=== PATIENT | female | born 1975 | race American Indian/Alaskan Native ===

== ENCOUNTER 2016-11-21 10:46 | Inpatient (IN) | payer MEDICARE ==
[2016-11-20 11:05] LABS: Basophils % (Auto) 0.3 % (0.0-1.8); Eosinophils % (Auto) 1.4 % (0.0-4.3); Hematocrit 37.4 % (30.3-42.9); Hemoglobin 11.9 gm/dl (10.1-14.3); Mean Corpuscular HGB Conc 32 % (30-34); Mean Corpuscular Hemoglobin 31 pg (28-32); Mean Corpuscular Volume 97 fl (79-97); Platelet Count 142 K/mm3 (140-440); Red Blood Count 3.85 M/mm3 (3.65-5.03); Red Cell Distribution Width 12.8 % (13.2-15.2); White Blood Count 3.9 K/mm3 (4.5-11.0)
--- NOTE | 2016-11-20 11:26 | Anesthesia Consultation ---
Anesthesia Consult and Med Hx Date of service: 11/20/16 - Airway Anesthetic Teeth Evaluation: Good ROM Head & Neck: Adequate Mental/Hyoid Distance: Adequate Mallampati Class: Class III Intubation Access Assessment: Probably Good - Pulmonary Exam CTA: Yes - Cardiac Exam Cardiac Exam: RRR - Pre-Operative Health Status ASA Pre-Surgery Classification: ASA2 Proposed Anesthetic Plan: General - Pre-Anesthesia Comment Pre-Anesthesia Comments: Cervical surgery, does not limit ROM - Pulmonary Hx Smoking: Yes (2 cigaretes per day [id number]) Hx Asthma: Yes (last inhaler mos ago) Hx Sleep Apnea: No - Cardiovascular System Hx Hypertension: No Hx Heart Attack/AMI: No - Central Nervous System Hx Seizures: No CVA: No Hx Psychiatric Problems: Yes (bipolar, anxiety, on propanolol) - Gastrointestinal Hx Ulcer: No Hx Gastroesophageal Reflux Disease: No - Endocrine Hx Renal Disease: No Hx Liver Disease: No Hx Non-Insulin Dependent Diabetes: No Hx Hypothyroidism: Yes (FOR 3 YRS, DR took off meds) - Hematic Hx Anemia: Yes Hx Sickle Cell Disease: No - Other Systems Hx Alcohol Use: Yes (occas) Hx Cancer: No Hx Obesity: Yes - Additional Comments Anesthesia Medical History Comments: NAC
[~2016-11-21 10:46] MED LIST: PEPCID PO NR; VERSED IV NR
[2016-11-21] MEDS ORDERED: LACTATED RINGERS 1,000 ML IV SCH (12:00)
[2016-11-21] MEDS ORDERED: MARCAINE-EPI 0.5%-1:200,000 INFILTRATI ONE ×2 (12:12→12:29)
[2016-11-21] MEDS ORDERED: DECADRON ONE ×2 (12:13→12:28)
[2016-11-21] MEDS ORDERED: XYLOCAINE 1% 20 mL ONE (12:13)
[2016-11-21] MEDS ORDERED: SUBLIMAZE ONE (12:14)
[2016-11-21] MEDS ORDERED: NEURONTIN ONE (12:16)
[2016-11-21] MEDS ORDERED: MARCAINE-EPI/PF 0.5%-1:200,000 INFILTRATI ONE (12:28)
[2016-11-21] MEDS ORDERED: DILAUDID ONE (13:00)
[2016-11-21] MEDS ORDERED: DIPRIVAN 10 MG/ML IV ONE (13:00)
[2016-11-21] MEDS ORDERED: CLONIDINE 1,000 MCG/10 ML VIAL EP ONE (13:00)
[2016-11-21] MEDS ORDERED: ANCEF/STERILE WATER 2 GM/20 ML IV NR (13:06)
[2016-11-21] MEDS ORDERED: SUBLIMAZE IV NR (13:06)
[2016-11-21] MEDS ORDERED: NEURONTIN PO NR (13:10)
[2016-11-21] MEDS ORDERED: NEOSPORIN GU IR ONE (13:38)
[2016-11-21] MEDS ORDERED: WATER FOR IRRIG STERILE IR ONE (13:38)
[2016-11-21] MEDS ORDERED: NACL 0.9% IR ONE ×2 (13:38)
[2016-11-21] MEDS ORDERED: ZEMURON IV ONE (14:09)
[2016-11-21] MEDS ORDERED: ROBINUL ONE (14:09)
[2016-11-21] MEDS ORDERED: ZOFRAN ONE (14:09)
[2016-11-21] MEDS ORDERED: TORADOL ONE (14:09)
[2016-11-21] MEDS ORDERED: XYLOCAINE MPF 2% ONE (14:09)
[2016-11-21] MEDS ORDERED: BLOXIVERZ ONE (14:09)
[2016-11-21] MEDS ORDERED: LACTATED RINGERS 1,000 ML ONE (14:25)
[2016-11-21] MEDS ORDERED: NARCAN 0.4 MG/1 ML IV PRN (15:14)
--- NOTE | 2016-11-21 15:14 | Operative Report ---
Operative Report Operative Report: Date of surgery: 11/21/2016 Preoperative diagnoses: Uterine fibroids; dysfunctional uterine bleeding Postoperative diagnoses: Same as above Procedure: Robotic hysterectomy; bilateral salpingectomy Surgeon: Sandra Massey M.D. Fur Pointer: Edison Keyes Anesthesia: Gen. endotracheal anesthesia Estimated blood loss: 50 mL Pathology: Uterus, cervix, bilateral tubes Indication: 41-year-old 1-4 with a history of symptomatic uterine fibroids and dysfunctional uterine bleeding. The patient did not receive adequate improvement of her symptoms with medical management and elected to undergo definitive surgical management. Procedure: The patient was taken to the operating room and given general endotracheal anesthesia without complication. She is prepped and draped in a normal sterile fashion. A bivalve speculum was placed in the patient's vagina and a single- tooth tenaculum placed on the anterior lip of the cervix. The uterus was sounded with the uterine sound. A [employer] uterine manipulator was placed in the bivalve speculum was then removed. Attention was then turned to the patient's abdomen where a millimeter supra umbilical skin incision was then made. A Veress needle was placed and peritoneal entry was verified water-filled syringe. Insufflation of the peritoneal cavity was performed with CO2 gas. The 12 mm trocar was then placed under direct visualization. An additional 8 mm trocar was placed on the patient's left and right lateral side just opposite of the supraumbilical trocar. An additional 5 mm right lateral trocar was then placed as the accessory port. The patient was then placed in steep Trendelenburg. The da Ramo robot was then engaged. A fenestrated forcep was placed in arm 2 and a vessel sealer was placed in arm 1. The surgeon then transferred to the surgical console. General survey of the abdomen and pelvis reveal evidence of a slightly enlarged uterus consistent with a 9-10 week size uterus, normal tubes consistent with a prior tubal ligation via Filshie clips, and normal ovaries bilaterally. The left Filshie clip was detached from the fallopian tube was removed with a grasper. The mesosalpinx was then isolated on the right. The vessel sealer was used to coagulate the mesosalpinx which was then transected. The tube was transected from the ovary. The tubo-ovarian ligament was then coagulated and transected. The round ligament was then coagulated and transected also. The vesicouterine peritoneum was then entered from the patient's right side. The uterine vessels were then coagulated with the vessel sealer. The vessels were then transected . Attention was then turned to the patient's left side where the tubo-ovarian ligament and mesosalpinx were again isolated coagulated and transected. The vesical peritoneum was then entered from the left and joined in the midline. Peritoneum was reflected off of the lower uterine segment. Uterine vessels were then coagulated and then transected. The blood supply to the uterus was adequately contained, a posterior colpotomy was made. The V care ring was visualized. Posterior colpotomy was created with the monopolar scissors. The incision was continued circumferentially until anterior colpotomy was made. The cervix and uterus were amputated from the vaginal cuff. The uterus was then removed along with the tubes bilaterally through the vagina and a warm laparotomy sponge was placed and maintain the pneumoperitoneum. The vaginal cuff was then closed in a running fashion with V lock suture. Irrigation of the pelvis was performed. Tisseel was applied to the incision. The supraumbilical 12 mm trocar site was closed with the Tru Grossman device. The skin was then reapproximated with 4-0 Monocryl. The tissue was sent to pathology which included the cervix and uterus. The patient was then successfully extubated. She was then taken to the recovery room in stable condition. All sponge laps and needle counts were correct x2.
[2016-11-21] MEDS ORDERED: MOTRIN PO PRN (15:16)
[2016-11-21] MEDS ORDERED: PERCOCET 5/325 PO PRN (15:16)
[2016-11-21] MEDS ORDERED: TYLENOL PO PRN (15:16)
[2016-11-21] MEDS ORDERED: ZOFRAN IV PRN (15:16)
[2016-11-21] MEDS ORDERED: MORPHINE PCA 30MG/30ML IV SCH ×2 (16:00)
[2016-11-21] MEDS: D5LR 1,000 ML IV SCH (21:51)
[2016-11-21] MEDS: TORADOL IV SCH (22:40)
[2016-11-22] MEDS: TORADOL IV SCH ×2 (04:28→10:00)
[2016-11-22 06:41] LABS: Hematocrit 35.1 % (30.3-42.9); Hemoglobin 11.3 gm/dl (10.1-14.3)
[2016-11-22] MEDS: D5LR 1,000 ML IV SCH (06:44)
[2016-11-22 09:35] VITALS: BP 118/68
--- NOTE | 2016-11-22 09:42 | Discharge Summary ---
Providers - Providers Date of Admission: 11/21/16 15:16 Date of discharge: 11/22/16 Attending physician: FRANCO FRANKLIN Primary care physician: FERMENTING CELLAR DROPPER Hospitalization Reason for admission: other (DUB) Procedure: other (robotic hysterectomy and bilateral salpingectomy) Incision: normal Discharge diagnosis: other (DUB) Hospital course: She was admitted that he is surgery and underwent a robotic hysterectomy and bilateral salpingectomy. Please see operative note for details of surgery. Her postoperative course was uneventful. Condition at discharge: Good Disposition: DISCHARGED TO HOME OR SELFCARE - Discharge Diagnoses (1) Dysfunctional uterine bleeding Status: Acute Plan - Discharge Medications Prescriptions: Docusate Sodium [Colace] 100 mg PO BID PRN #60 capsule PRN Reason: Constipation Ibuprofen [Motrin] 800 mg PO Q8HR PRN #60 tablet PRN Reason: Pain Oxycodone HCl/Acetaminophen [Percocet 7.5/325 mg] 1 each PO Q6HR PRN #45 tablet PRN Reason: Pain - Provider Discharge Summary Activity: no sex for 6 weeks, no heavy lifting 4 weeks, no strenuous exercise Diet: routine Instructions: routine Additional instructions: [] Smoking cessation referral if applicable(refer to patient education folder for contact #) [] Refer to [facility]'s [facility] Booklet Call your doctor immediately for: * Fever > 100.5 * Heavy vaginal bleeding ( >1 pad per hour) * Severe persistent headache * Shortness of breath * Reddened, hot, painful area to leg or breast * Drainage or odor from incision. * Keep incision clean and dry at all times and follow doctor's instructions regarding bathing/showering Follow-up in 4 weeks - Follow up plan
--- NOTE | 2016-11-22 09:42 | Progress Note ---
Assessment and Plan - Patient Problems (1) Dysfunctional uterine bleeding Current Visit: Yes Status: Acute Plan to address problem: patient doing well discharge home Subjective - Subjective Date of service: 11/22/16 Principal diagnosis: DUB Interval history: Patient without complaints. Tolerating regular diet. Patient has voided since removal of her lund Patient reports: appetite normal, voiding normally, pain well controlled Objective - Vital Signs Latest vital signs: Vital Signs Temp Pulse Pulse Resp BP BP Pulse Ox 11/22/16 04:00 98.0 F 54 L 20 124/79 11/22/16 00:00 97.9 F 57 L 18 122/70 11/21/16 20:00 98.2 F 58 L 20 146/86 11/21/16 17:45 97.6 F 60 17 151/85 11/21/16 17:30 98 F 70 14 100 11/21/16 17:00 72 12 118/63 100 11/21/16 16:55 12 11/21/16 16:30 70 10 L 122/68 100 11/21/16 16:00 68 14 118/62 100 11/21/16 15:40 71 12 112/60 100 11/21/16 15:35 97.5 F L 75 12 115/63 100 11/21/16 12:44 55 L 12 153/81 100 11/21/16 12:39 54 L 12 137/78 100 11/21/16 12:34 62 12 143/88 100 11/21/16 12:29 55 L 14 155/87 100 11/21/16 12:24 57 L 13 148/83 100 11/21/16 11:06 98.2 F 63 16 141/75 99 11/21/16 11:00 98.2 F 63 16 141/75 99 Intake and Output 11/21/16 11/22/16 11/22/16 22:59 06:59 14:59 Intake Total 1480 Output Total 600 1000 Balance -600 480 Intake: IV 1000 D5lr 1,000 ml @ 125 mls/ 1000 hr IV DIRECT FLORENTIN Rx#: [id number] Oral 480 Output: Urine 600 1000 Indwelling Catheter 1000 Other: Total, Intake Amount 240 Total, Output Amount 600 Voiding Method Indwelling Catheter - Exam Abdomen: Present: normal appearance, soft
--- NOTE | 2016-11-22 12:40 | Progress Note ---
Subjective Date of service: 11/22/16 Principal diagnosis: DUB Interval history: 1st POD after hysterectomy Patient is relatively comfortable. Pain is mostly controlled with pain meds. Ambulated well. No nausea or vomiting. No anesthesia complications Objective - Constitutional Vitals: Vital Signs - 12hr 11/22/16 11/22/16 04:00 08:00 Temperature 98.0 F 98.4 F Pulse Rate [ 54 L 64 Left] Respiratory 20 16 Rate Blood Pressure 124/79 118/68 [Left Arm] - Labs CBC & Chem 7: 11/22/16 05:54
--- NOTE | 2016-11-22 14:27 | Admit Criteria Form ---
Admission Criteria Documentation: AMBULATORY SURGERY EXCEPTION CRITERIA Ambulatory Surgery Exception Criteria ( Place 'X' for any and all applicable criteria): Surgery or procedure performed on ambulatory basis may require inpatient stay for[A] ANY ONE of the following(1)(2)(3)(4)(5)(6)(7)(8)(9): [X] I. A preoperative situation, condition, or finding that warrants inpatient stay as indicated by ANY ONE of the following: [X] a) Inpatient care needed because of severity of a disease or condition rather than the surgery (eg, severe cardiac or respiratory disease, severe infection) (15) (16 ) (17) (18) [] b) Emergent procedure (eg, angioplasty for acute ischemia)(19) [] c) Complex surgical approach or situation as indicated by ANY ONE of the following(3): [] i) Open approach needed instead of usual endoscopic, transcatheter, or other less invasive procedure [] ii) Difficult approach because of previous operation [] iii) Airway monitoring required after open neck procedures(20)(21) [] iv) Large mass requiring unusually extensive dissection [] v) Additional complicating feature requiring inpatient care (eg, drain management)(22(23): [] d) Major surgery in a pt with high anesthetic risk as indicated by ANY ONE of the following (2)(3)(5)(7)(8): [] i) ASA risk class III or higher (severe systemic disease impairing function) [D] [] ii) Advanced age (eg, older than 85 years)(14)(24) [] iii) Symptomatic heart failure(25) [] iv) Symptomatic asthma or COPD(8)(21) [] v) Morbid obesity with hemodynamic or respiratory problems(20)( 21)(26)(27) [] vi) Obstructive sleep apnea(20)(21) [] vii) Former premature infants who are younger than 60 weeks [] viii) High risk for severe postoperative abnormalities (eg, severe postoperative hypocalcemia after parathyroidectomy for severe hyperparathyroidism)(27)( 28) [] ix) Unstable angina(25) [] e) Drug-related risk requiring inpatient stay as indicated by ANY ONE of the following(5)(10)(14)(32)(33) [] i) Procedure requires discontinuing drugs or other therapy (eg , antiarrhythmic medication, antiseizure medication), which necessitates inpatient observation or treatment.(18)(31) [] ii) Major surgery and high risk drug use as indicated by ANY ONE of the following: [] 1) Active abuse of cocaine or similar drug [] 2) Monoamine oxidase inhibitor use [] 3) Other drug identified as posing risk [] f) Inadequate outpatient care situation as indicated by ANY ONE of the following(5)(10)(14)(32)(33) [] i) Patient lives remote from medical facility and procedure has urgent complication potential, and temporary nearby residence cannot be arranged [] ii) Patient will have postprocedure incapacitation and inadequate assistance at home, or alternative level of care cannot be arranged. [] iii) Patient will have long general anesthesia or procedure side effect resolution time, and competent person to stay with patient on first postoperative night at home or alternative level of care cannot be arranged. []iv) Other inadequate outpatient situation that cannot be handled by other means [] II. A perioperative event, condition, or finding that warrants inpatient stay as indicated by ANY ONE of the following (1)(2)(3): [] a) Inadequate physiologic recovery: cardiovascular, respiratory, or hemodynamic status not normal or near preoperative baseline(18) [] b) Hemodynamic instability [] c) Patient not alert with near normal or baseline mental status [] d) Temperature not normal or as expected and not appropriate for outpatient treatment of condition [] e) Ambulatory or appropriate activity level status not yet achieved post procedure [E](34)(35)(36) [] f) Operative site not appropriate (eg, unexpected or excessive drainage or bleeding) [] g) Postoperative effects not resolved or adequately managed (eg, significant pain or vomiting not appropriate for outpatient or next level of care)(10)(12) [] h) Complicating features requiring inpatient care as indicated by ANY ONE of the following(37): [] i) Severe complications of procedure (eg, bowel injury, airway compromise, vascular injury,severe hemorrhage) [] ii) Extensive (eg, dissection far beyond usual scope of procedure ) or prolonged (eg, 120 minutes beyond usual) surgery needed requiring inpatient postoperative care [] iii) Conversion to an open or complex procedure that requires inpatient care (eg, open vs laparoscopic cholecystectomy, abdominal vs vaginal hysterectomy)(38) [] iv) Comorbid condition or test result identified during or post procedure that requires inpatient care (7) [] v) Malignant hyperthermia(30) [] vi) Other complicating feature requiring inpatient care(22)(23) Inpatient stay may be needed until ALL of the following are present (1)(2)(3)(4) (5)(6)(10)(14)(33)(40): []a) Physiologic recovery: cardiovascular, respiratory, and hemodynamic status normal or near preoperative baseline []b) Hemodynamic stability []c) Patient alert, with near normal or baseline mental status []d) Temperature appropriate: patient afebrile or temperature appropriate for outpt treatment of condition []e) Activity level appropriate: ambulatory or appropriate activity level post procedure []f) Operative site appropriate as indicated by ALL of the following: []i) Site dry or with expected drainage []ii) Any blood noted is as expected for procedure. []g) Postoperative effects resolved or managed as indicated by ALL of the following: []i) Pain management appropriate for outpatient (or next level of) care(10) []ii) Minimal nausea and vomiting: if present, successfully treated with oral medication(12) []iii) Headache, dizziness, or drowsiness (if present) are mild. []h) Voiding status acceptable as indicated by ANY ONE of the following: []i) Voiding spontaneously []ii) No voiding but instructions given for follow-up in 6 to 8 hours []iii) Urinary catheter in place, and instructions given for follow-up []i) Complicating features requiring inpatient care manageable at a lower level of care(37) []j) Comorbid conditions manageable at a lower level of care(37) The original [employer] content created by [employer] has been revised. The portions of the content which have been revised are identified through the use of italic text or in bold, and [employer] has neither reviewed nor approved the modified material. All other unmodified content is copyright [employer]. Please see references footnoted in the original [employer] edition 2016 Admission Criteria Met: Yes
== END 2016-11-22 10:45 | disposition home or self-care (01) | DRG 743 ==
LOC: OR 10:46 → OB 15:16 → OBSVTOIN 11-22 09:41
PROVIDERS: ADMIT Obstetrics & Gynecology; ATTEND Obstetrics & Gynecology
PROC: 0UT9FZZ Resection of Uterus, Via Natural or Artificial Opening With Percutaneous Endoscopic Assistance (ICD-10-PCS; principal; 2016-11-22)
PROC: 0UT7FZZ Resection of Bilateral Fallopian Tubes, Via Natural or Artificial Opening With Percutaneous Endoscopic Assistance (ICD-10-PCS; 2016-11-22)
PROC: 0UTC7ZZ Resection of Cervix, Via Natural or Artificial Opening (ICD-10-PCS; 2016-11-22)
PROC: 8E0W4CZ Robotic Assisted Procedure of Trunk Region, Percutaneous Endoscopic Approach (ICD-10-PCS; 2016-11-22)
DX: D25.9 Leiomyoma of uterus, unspecified (principal); N93.9 Abnormal uterine and vaginal bleeding, unspecified; F17.210 Nicotine dependence, cigarettes, uncomplicated; J45.909 Unspecified asthma, uncomplicated; F41.9 Anxiety disorder, unspecified; F31.9 Bipolar disorder, unspecified; D64.9 Anemia, unspecified; E66.9 Obesity, unspecified; Z68.33 Body mass index [BMI] 33.0-33.9, adult; Z88.2 Allergy status to sulfonamides; Z88.8 Allergy status to other drugs, medicaments and biological substances
CPT/HCPCS: 36415; 64450; 84703; 85014; 85018; 85025; 86850; 86900; 86901; 88305; 88307; A4217; C9250; G0378; J0690; J0735; J1100; J1170; J1885; J2250; J2270; J2405; J2704; J2710; J3010; J7120; J7121

== ENCOUNTER 2019-06-10 04:58 | Emergency (ER) | payer MEDICARE ==
[2019-06-10] MEDS ORDERED: TORADOL IM ONE (05:13)
[2019-06-10] MEDS ORDERED: PROVENTIL IH ONE (05:14)
[2019-06-10] MEDS ORDERED: DECADRON PO ONE (05:14)
--- NOTE | 2019-06-10 05:23 | Emergency Department Report ---
ED Asthma HPI - General Chief Complaint: Adult Asthma Stated Complaint: TARA Time Seen by Provider: 06/10/19 05:13 Source: patient Mode of arrival: Ambulatory Limitations: No Limitations - History of Present Illness Initial Comments: 43-year-old -Tongan female presents to the emergency room for nonproductive cough and shortness of breath 3 days. Patient reports that she is not getting much relief from her albuterol inhaler. Patient reports she's had 3 visits to the emergency room this year for her asthma. Patient does admit that she smokes cigarettes. She denies any fever or chills no chest pain. She also complains of back pain that she's had for months. Denies any recent traumas. Patient is asking for pain medication for her back. MD Complaint: shortness of breath Onset/Timin -: days(s) Asthma History: history of prior ED visit Associated Symptoms: dry cough. denies: fever, chest pain, hemoptysis, leg edema Treatments Prior to Arrival: inhaled bronchodilator - Related Data Current Asthma Therapy: inhaled bronchodilator Home Medications Medication Instructions Recorded Confirmed Last Taken FLUoxetine HCL [PROzac] 40 mg PO QDAY 10/02/13 11/19/16 11/20/16 clonazePAM [KlonoPIN] 5 mg PO BID 10/02/13 11/19/16 11/20/16 ALBUTEROL Inhaler (OR & NICU) 2 puff IH QID PRN 11/19/16 11/21/16 2 Months Ago [Proair] ~09/20/16 ARIPiprazole [Abilify] 10 mg PO DAILY 11/19/16 11/19/16 11/20/16 Benztropine [Cogentin] 0.5 mg PO HS 11/19/16 11/19/16 11/20/16 Propranolol HCl 20 mg PO BID 11/19/16 11/19/16 11/20/16 Previous Rx's Medication Instructions Recorded Last Taken Type Docusate Sodium [Colace] 100 mg PO BID PRN #60 capsule 11/22/16 Unknown Rx Ibuprofen [Motrin] 800 mg PO Q8HR PRN #60 tablet 11/22/16 Unknown Rx Oxycodone HCl/Acetaminophen 1 each PO Q6HR PRN #45 tablet 11/22/16 Unknown Rx [Percocet 7.5/325 mg] ALBUTEROL NEB's [Proventil 0.083% 2.5 mg IH TID PRN #1 box 06/10/19 Unknown Rx NEBS] Beclomethasone Dipropionate [Qvar 1 puff IH QDAY #1 hfa.aeroba 06/10/19 Unknown Rx Redihaler] predniSONE [Deltasone] 20 mg PO QDAY #4 tab 06/10/19 Unknown Rx Allergies Allergy/AdvReac Type Severity Reaction Status Date / Time Sulfa (Sulfonamide Allergy Intermediate Rash Verified 11/19/16 15:15 Antibiotics) fexofenadine HCl AdvReac Severe BLURRED Verified 11/19/16 15:15 [From Mayelin] VISION POWDER IN GLOVES Allergy Rash Uncoded 03/12/16 15:44 ED Review of Systems ROS: Stated complaint: TARA Other details as noted in HPI Comment: All other systems reviewed and negative ED Past Medical Hx - Past Medical History Previous Medical History?: Yes Hx Hypertension: No Hx Heart Attack/AMI: No Hx Liver Disease: No Hx Renal Disease: No Hx Sickle Cell Disease: No Hx Arthritis: Yes Hx Seizures: No Hx Asthma: Yes (last inhaler mos ago) Hx HIV: No - Surgical History Past Surgical History?: Yes Additional Surgical History: spinal surgery,bladder surgery,tubal ligation, hysterectomy - Social History Smoking Status: Current Every Day Smoker - Medications Home Medications: Home Medications Medication Instructions Recorded Confirmed Last Taken Type FLUoxetine HCL [PROzac] 40 mg PO QDAY 10/02/13 11/19/16 11/20/16 History clonazePAM [KlonoPIN] 5 mg PO BID 10/02/13 11/19/16 11/20/16 History ALBUTEROL Inhaler (OR & NICU) 2 puff IH QID PRN 11/19/16 11/21/16 2 Months Ago History [Proair] ~09/20/16 ARIPiprazole [Abilify] 10 mg PO DAILY 11/19/16 11/19/16 11/20/16 History Benztropine [Cogentin] 0.5 mg PO HS 11/19/16 11/19/16 11/20/16 History Propranolol HCl 20 mg PO BID 11/19/16 11/19/16 11/20/16 History Docusate Sodium [Colace] 100 mg PO BID PRN #60 capsule 11/22/16 Unknown Rx Ibuprofen [Motrin] 800 mg PO Q8HR PRN #60 tablet 11/22/16 Unknown Rx Oxycodone HCl/Acetaminophen 1 each PO Q6HR PRN #45 tablet 11/22/16 Unknown Rx [Percocet 7.5/325 mg] ALBUTEROL NEB's [Proventil 0.083% 2.5 mg IH TID PRN #1 box 06/10/19 Unknown Rx NEBS] Beclomethasone Dipropionate [Qvar 1 puff IH QDAY #1 hfa.aeroba 06/10/19 Unknown Rx Redihaler] predniSONE [Deltasone] 20 mg PO QDAY #4 tab 06/10/19 Unknown Rx ED Physical Exam - General Limitations: No Limitations General appearance: alert, in no apparent distress - Head Head exam: Present: atraumatic, normocephalic - Eye Eye exam: Present: normal appearance - ENT ENT exam: Present: mucous membranes moist - Neck Neck exam: Present: normal inspection - Respiratory Respiratory exam: Present: normal lung sounds bilaterally. Absent: respiratory distress - Cardiovascular Cardiovascular Exam: Present: regular rate, normal rhythm. Absent: systolic murmur, diastolic murmur, rubs, gallop - GI/Abdominal GI/Abdominal exam: Present: soft, normal bowel sounds - Extremities Exam Extremities exam: Present: normal inspection - Back Exam Back exam: Present: normal inspection - Neurological Exam Neurological exam: Present: alert, oriented X3 - Psychiatric Psychiatric exam: Present: normal affect, normal mood - Skin Skin exam: Present: warm, dry, intact, normal color. Absent: rash ED Course Vital Signs 06/10/19 05:00 Temperature 98.1 F Pulse Rate 66 Respiratory 18 Rate Blood Pressure 123/66 O2 Sat by Pulse 100 Oximetry ED Medical Decision Making - Medical Decision Making 43-year-old -Tongan female presents to the emergency room for nonproductive cough and shortness of breath 3 days. Patient reports that she is not getting much relief from her albuterol inhaler. Patient reports she's had 3 visits to the emergency room this year for her asthma. Patient does admit that she smokes cigarettes. She denies any fever or chills no chest pain. She also complains of back pain that she's had for months. Denies any recent traumas. Patient is asking for pain medication for her back. She'll be given a Toradol injection for her back pain. She'll be given dexamethasone by mouth for asthma. The lung sounds are clear patient be discharged home on steroids and nebulizer albuterol solution. She was to keep her appointment with her primary care provider that she reports she has in June. Encourage patient to stop smoking. Critical care attestation.: If time is entered above; I have spent that time in minutes in the direct care of this critically ill patient, excluding procedure time. ED Disposition Clinical Impression: Asthma Qualifiers: Asthma severity: mild Asthma persistence: unspecified Asthma complication type: unspecified Qualified Code(s): J45.909 - Unspecified asthma, uncomplicated Chronic back pain Qualifiers: Back pain location: low back pain Sciatica presence: without sciatica Disposition: - TO HOME OR SELFCARE Is pt being admited?: No Does the pt Need Aspirin: No Condition: Stable Instructions: Asthma (ED), Chronic Back Pain (ED) Additional Instructions: Please use inhalers as prescribed. Complete your steroid. Take Tylenol and/or Motrin as needed for pain management. Follow-up with your primary care provider in the next 3-5 days if symptoms persist Prescriptions: predniSONE [Deltasone] 20 mg PO QDAY #4 tab ALBUTEROL NEB's [Proventil 0.083% NEBS] 2.5 mg IH TID PRN #1 box PRN Reason: Cough Beclomethasone Dipropionate [Qvar Redihaler] 1 puff IH QDAY #1 hfa.aeroba Forms: Work/School Release Form(ED)
[2019-06-10 05:54] VITALS: BP 118/64
== END 2019-06-10 05:52 | disposition home or self-care (01) ==
LOC: ED 04:58
DX: J45.909 Unspecified asthma, uncomplicated (principal); M54.9 Dorsalgia, unspecified; F17.200 Nicotine dependence, unspecified, uncomplicated; M19.90 Unspecified osteoarthritis, unspecified site; Z88.2 Allergy status to sulfonamides; Z88.8 Allergy status to other drugs, medicaments and biological substances; Z79.899 Other long term (current) drug therapy; Z98.51 Tubal ligation status; Z90.710 Acquired absence of both cervix and uterus
CPT/HCPCS: 94640; 96372; 99283; J1885; J8540

== ENCOUNTER 2019-06-21 18:41 | Emergency (ER) | payer MEDICARE ==
[2019-06-21] MEDS ORDERED: SOLU-Medrol IV ONE (20:06)
[2019-06-21] MEDS ORDERED: DUONEB *Not for PRN Use IH ONE (20:06)
[2019-06-21 20:53] LABS: Eosinophils # (Auto) 0.1 K/mm3 (0.0-0.4); Eosinophils % (Auto) 2.3 % (0.0-4.3); Hematocrit 39.2 % (30.3-42.9); Hemoglobin 12.8 gm/dl (10.1-14.3); Lymphocytes % (Auto) 49.6 % (13.4-35.0); Mean Corpuscular HGB Conc 33 % (30-34); Mean Corpuscular Volume 95 fl (79-97); Monocytes # (Auto) 0.5 K/mm3 (0.0-0.8); Monocytes % (Auto) 11.8 % (0.0-7.3); Platelet Count 139 K/mm3 (140-440); Red Blood Count 4.15 M/mm3 (3.65-5.03); Red Cell Distribution Width 13.1 % (13.2-15.2)
--- NOTE | 2019-06-21 20:58 | XRay Report ---
CHEST 2 VIEWS INDICATION / CLINICAL INFORMATION: dyspnea. COMPARISON: None available. FINDINGS: SUPPORT DEVICES: None. HEART / MEDIASTINUM: No significant abnormality. LUNGS / PLEURA: No significant pulmonary or pleural abnormality. No pneumothorax. ADDITIONAL FINDINGS: No significant additional findings. IMPRESSION: 1. No acute findings. Signer Name: Bahman Álvarez MD Signed: 06/21/2019 8:54 PM Workstation Name: [id number]
[2019-06-21 21:09] LABS: Alanine Aminotransferase 14 units/L (7-56); Albumin 4.4 g/dL (3.9-5); BUN/Creatinine Ratio 15; Blood Urea Nitrogen 9 mg/dL (7-17); Calcium 9.1 mg/dL (8.4-10.2); Hemolysis Index 5
--- NOTE | 2019-06-21 22:42 | Emergency Department Report ---
- General Chief Complaint: Upper Respiratory Infection Stated Complaint: TARA/COUGHING Time Seen by Provider: 06/21/19 19:30 Source: patient Mode of arrival: Ambulatory Limitations: No Limitations - History of Present Illness Initial Comments: Patient is a 43-year-old -[place] female with a history of asthma and a femoral tobacco smoker presents with a complaint of acute onset persistent nasal and sinus congestion, dry cough wheezing or shortness of breath for the last 1 week, and prescription was in the last 2 days despite using her albuterol inhaler and [id number] Mucinex. Patient states that her symptoms however was at night. Patient denies dizziness, fever, chills, nausea, vomiting, chest pain, abdominal pain, sore throat, headache, back pain or dysuria and palpitations. MD Complaint: cough, rhinorrhea, nasal congestion -: Sudden, week(s) (1) Severity: moderate Severity scale (0 -10): 3 Quality: dull, aching Consistency: constant Improves With: nothing Worsens With: nothing Associated Symptoms: denies other symptoms, rhinorrhea, nasal congestion, cough, shortness of breath. denies: fever, chills, myalgias, diaphoresis, stiff neck, chest pain, abdominal pain, nausea, vomiting, diarrhea, dysuria, rash, confusion, epistaxis, hoarseness, ear pain Treatments Prior to Arrival: none - Related Data Home Medications Medication Instructions Recorded Confirmed Last Taken FLUoxetine HCL [PROzac] 40 mg PO QDAY 10/02/13 11/19/16 11/20/16 clonazePAM [KlonoPIN] 5 mg PO BID 10/02/13 11/19/16 11/20/16 ALBUTEROL Inhaler (OR & NICU) 2 puff IH QID PRN 11/19/16 11/21/16 2 Months Ago [Proair] ~09/20/16 ARIPiprazole [Abilify] 10 mg PO DAILY 11/19/16 11/19/16 11/20/16 Benztropine [Cogentin] 0.5 mg PO HS 11/19/16 11/19/16 11/20/16 Propranolol HCl 20 mg PO BID 11/19/16 11/19/16 11/20/16 Previous Rx's Medication Instructions Recorded Last Taken Type Docusate Sodium [Colace] 100 mg PO BID PRN #60 capsule 11/22/16 Unknown Rx Ibuprofen [Motrin] 800 mg PO Q8HR PRN #60 tablet 11/22/16 Unknown Rx Oxycodone HCl/Acetaminophen 1 each PO Q6HR PRN #45 tablet 11/22/16 Unknown Rx [Percocet 7.5/325 mg] ALBUTEROL NEB's [Proventil 0.083% 2.5 mg IH TID PRN #1 box 06/10/19 Unknown Rx NEBS] Beclomethasone Dipropionate [Qvar 1 puff IH QDAY #1 hfa.aeroba 06/10/19 Unknown Rx Redihaler] predniSONE [Deltasone] 20 mg PO QDAY #4 tab 06/10/19 Unknown Rx Benzonatate [Tessalon Perles] 100 mg PO Q8HR #30 capsule 06/21/19 Unknown Rx Doxycycline Hyclate [Doxycycline 100 mg PO Q12HR #20 tab 06/21/19 Unknown Rx Hyclate TAB] Prednisone [predniSONE 10 mg 10 mg PO DAILY #21 tab.ds.pk 06/21/19 Unknown Rx (6-Day Pack, 21 Tabs)] Allergies Allergy/AdvReac Type Severity Reaction Status Date / Time Sulfa (Sulfonamide Allergy Intermediate Rash Verified 11/19/16 15:15 Antibiotics) fexofenadine HCl AdvReac Severe BLURRED Verified 11/19/16 15:15 [From Mayelin] VISION POWDER IN GLOVES Allergy Rash Uncoded 03/12/16 15:44 ED Review of Systems ROS: Stated complaint: TARA/COUGHING Other details as noted in HPI Comment: All other systems reviewed and negative Constitutional: denies: chills, fever Eyes: denies: eye pain, eye discharge, vision change ENT: congestion. denies: ear pain, throat pain Respiratory: cough, shortness of breath, wheezing Cardiovascular: denies: chest pain, palpitations Endocrine: no symptoms reported Gastrointestinal: denies: abdominal pain, nausea, diarrhea Genitourinary: denies: urgency, dysuria, discharge Musculoskeletal: denies: back pain, joint swelling, arthralgia Skin: denies: rash, lesions Neurological: denies: headache, weakness, paresthesias Psychiatric: denies: anxiety, depression Hematological/Lymphatic: denies: easy bleeding, easy bruising ED Past Medical Hx - Past Medical History Previous Medical History?: Yes Hx Hypertension: No Hx Heart Attack/AMI: No Hx Liver Disease: No Hx Renal Disease: No Hx Sickle Cell Disease: No Hx Arthritis: Yes Hx Seizures: No Hx Asthma: Yes (last inhaler mos ago) Hx HIV: No - Surgical History Past Surgical History?: Yes Additional Surgical History: spinal surgery,bladder surgery,tubal ligation, hysterectomy - Social History Smoking Status: Current Every Day Smoker Substance Use Type: Alcohol, Marijuana, Prescribed - Medications Home Medications: Home Medications Medication Instructions Recorded Confirmed Last Taken Type FLUoxetine HCL [PROzac] 40 mg PO QDAY 10/02/13 11/19/16 11/20/16 History clonazePAM [KlonoPIN] 5 mg PO BID 10/02/13 11/19/16 11/20/16 History ALBUTEROL Inhaler (OR & NICU) 2 puff IH QID PRN 11/19/16 11/21/16 2 Months Ago History [Proair] ~09/20/16 ARIPiprazole [Abilify] 10 mg PO DAILY 11/19/16 11/19/16 11/20/16 History Benztropine [Cogentin] 0.5 mg PO HS 11/19/16 11/19/16 11/20/16 History Propranolol HCl 20 mg PO BID 11/19/16 11/19/16 11/20/16 History Docusate Sodium [Colace] 100 mg PO BID PRN #60 capsule 11/22/16 Unknown Rx Ibuprofen [Motrin] 800 mg PO Q8HR PRN #60 tablet 11/22/16 Unknown Rx Oxycodone HCl/Acetaminophen 1 each PO Q6HR PRN #45 tablet 11/22/16 Unknown Rx [Percocet 7.5/325 mg] ALBUTEROL NEB's [Proventil 0.083% 2.5 mg IH TID PRN #1 box 06/10/19 Unknown Rx NEBS] Beclomethasone Dipropionate [Qvar 1 puff IH QDAY #1 hfa.aeroba 06/10/19 Unknown Rx Redihaler] predniSONE [Deltasone] 20 mg PO QDAY #4 tab 06/10/19 Unknown Rx Benzonatate [Tessalon Perles] 100 mg PO Q8HR #30 capsule 06/21/19 Unknown Rx Doxycycline Hyclate [Doxycycline 100 mg PO Q12HR #20 tab 06/21/19 Unknown Rx Hyclate TAB] Prednisone [predniSONE 10 mg 10 mg PO DAILY #21 tab.ds.pk 06/21/19 Unknown Rx (6-Day Pack, 21 Tabs)] ED Physical Exam - General Limitations: No Limitations General appearance: alert, in no apparent distress - Head Head exam: Present: atraumatic, normocephalic, normal inspection - Eye Eye exam: Present: normal appearance, PERRL, EOMI. Absent: scleral icterus, conjunctival injection, nystagmus, periorbital swelling, other Pupils: Present: normal accommodation - ENT ENT exam: Present: normal orophraynx, mucous membranes moist, TM's normal bilaterally, normal external ear exam, other (grossly congested nasal passages) - Neck Neck exam: Present: normal inspection, full ROM. Absent: tenderness, lymphadenopathy - Respiratory Respiratory exam: Present: normal lung sounds bilaterally, wheezes (diffuse coarse wheezes throughout). Absent: respiratory distress, chest wall tenderness, accessory muscle use, decreased breath sounds - Cardiovascular Cardiovascular Exam: Present: regular rate, normal rhythm, normal heart sounds. Absent: systolic murmur, diastolic murmur, rubs, gallop - GI/Abdominal GI/Abdominal exam: Present: soft, normal bowel sounds. Absent: tenderness, guarding, rebound, hyperactive bowel sounds, hypoactive bowel sounds, organomegaly - Rectal Rectal exam: Present: deferred - Extremities Exam Extremities exam: Present: normal inspection, full ROM, normal capillary refill - Back Exam Back exam: Present: normal inspection, full ROM. Absent: tenderness, CVA tende rness (R), CVA tenderness (L), muscle spasm, paraspinal tenderness, vertebral tenderness - Neurological Exam Neurological exam: Present: alert, oriented X3, CN II-XII intact, normal gait, reflexes normal - Psychiatric Psychiatric exam: Present: normal affect, normal mood - Skin Skin exam: Present: warm, dry, intact, normal color. Absent: rash ED Course Vital Signs 06/21/19 18:42 Temperature 98.7 F Pulse Rate 75 Respiratory 20 Rate Blood Pressure 119/61 O2 Sat by Pulse 97 Oximetry - Reevaluation(s) Reevaluation #1: 06/21/19 22:43 This is a 43-year-old female with a history of asthma who recently quit tobacco smoking, who presents to the ED with worsening shortness of breath, dry cough and wheezing and nasal and sinus congestion for the last 1 week. In the ED, patient received DuoNeb treatment and Solu-Medrol. Lab tests results were reviewed and are all unremarkable. Chest x-ray shows no acute cardiopulmonary abnormalities. On reevaluation, patient's wheezing and shortness of breath have. Patient reports to feeling much better than when she got to the ED. Patient has albuterol inhalers at home to be used as needed. Patient also has an appointment with career services manager in 3 days. Patient was discharged home on medications and advised to follow-up with her career services manager and primary care physician as scheduled. Patient was advised to return to the ED immediately if symptoms get worse. ED Medical Decision Making - Lab Data Result diagrams: 06/21/19 20:24 06/21/19 20:24 - EKG Data Rate: normal - EKG Data Interpretation: normal EKG 06/21/19 22:45 Normal sinus rhythm, ventricular rate of [address] or T-wave abnormalities. - Radiology Data Radiology results: report reviewed, image reviewed Chest x-ray shows no acute cardiopulmonary abnormalities. - Medical Decision Making This is a 43-year-old female with a history of asthma who recently quit tobacco smoking, who presents to the ED with worsening shortness of breath, dry cough and wheezing and nasal and sinus congestion for the last 1 week. In the ED, patient received DuoNeb treatment and Solu-Medrol. Lab tests results were reviewed and are all unremarkable. EKG shows normal sinus rhythm with ventricular rate of 64 bpm, and no ST or T-wave abnormalities. Chest x-ray shows no acute cardiopulmonary abnormalities. On reevaluation, patient's wheezing and shortness of breath have. Patient reports to feeling much better than when she got to the ED. Patient has albuterol inhalers at home to be used as needed. Patient also has an appointment with career services manager in 3 days. Patient was discharged home on medications and advised to follow-up with her career services manager and primary care physician as scheduled. Patient was advised to return to the ED immediately if symptoms get worse. - Differential Diagnosis Acute asthma exacerbation; Acute bronchitis; acute URI; Dyspnea Critical care attestation.: If time is entered above; I have spent that time in minutes in the direct care of this critically ill patient, excluding procedure time. ED Disposition Clinical Impression: Acute upper respiratory infection, Acute asthmatic bronchitis Disposition: DC-01 TO HOME OR SELFCARE Is pt being admited?: No Does the pt Need Aspirin: No Condition: Stable Instructions: Acute Bronchitis (ED), Upper Respiratory Infection (ED) Additional Instructions: Take medications with food, drink plenty of fluids and follow-up with primary care physician in 5-7 days for reevaluation. Return to the ED immediately if symptoms get worse. Prescriptions: Doxycycline Hyclate [Doxycycline Hyclate TAB] 100 mg PO Q12HR #20 tab Prednisone [predniSONE 10 mg (6-Day Pack, 21 Tabs)] 10 mg PO DAILY #21 tab.ds.pk Benzonatate [Tessalon Perles] 100 mg PO Q8HR #30 capsule Referrals: [facility] [Outside] - 3-5 Days Time of Disposition: 22:38 Print Language: MONGOLIAN
[2019-06-21 22:56] VITALS: BP 124/64
== END 2019-06-21 22:55 | disposition home or self-care (01) ==
LOC: ED 18:41
DX: J45.909 Unspecified asthma, uncomplicated (principal); J06.9 Acute upper respiratory infection, unspecified; F12.10 Cannabis abuse, uncomplicated; M19.90 Unspecified osteoarthritis, unspecified site; Z88.2 Allergy status to sulfonamides; Z88.8 Allergy status to other drugs, medicaments and biological substances; Z79.899 Other long term (current) drug therapy; Z79.1 Long term (current) use of non-steroidal anti-inflammatories (NSAID); Z98.51 Tubal ligation status; Z90.710 Acquired absence of both cervix and uterus; Z87.891 Personal history of nicotine dependence
CPT/HCPCS: 36415; 71046; 80053; 84484; 85025; 93005; 93010; 94640; 96374; 99284; J2930

== ENCOUNTER 2019-08-31 15:40 | Emergency (ER) | payer MEDICARE ==
[2019-08-31 16:28] VITALS: BP 114/58
== END 2019-08-31 19:15 | disposition left against medical advice (07) ==
LOC: ED 15:40
DX: L50.9 Urticaria, unspecified (principal); Z53.21 Procedure and treatment not carried out due to patient leaving prior to being seen by health care provider

== ENCOUNTER 2019-09-07 07:31 | Emergency (ER) | payer MEDICARE ==
[2019-09-07] MEDS ORDERED: methylPREDNISolone Sod Succinate 125 MG/2 ML INJ IV ONE (08:05)
[2019-09-07] MEDS ORDERED: FAMOTIDINE 20 MG/2 ML INJ IV ONE (08:06)
[2019-09-07] MEDS ORDERED: diphenhydrAMINE 50 MG/ML VIAL IV ONE (08:07)
--- NOTE | 2019-09-07 08:23 | Emergency Department Report ---
HPI - General Chief Complaint: Allergic Reaction Time Seen by Provider: 09/07/19 07:54 - HPI HPI: 43-year-old -[place] female presents to the emergency department with a complaint of an allergic reaction that has caused diffuse hives and itching. The patient says that this is been going on intermittently over the past 2 weeks and she has been to the emergency department about 3 or 4 times for it. She takes the medication and/or treatment compliantly but it still seems to return. She denies any swelling of the lips, tongue, throat, difficulty swallowing, shortness of breath or chest pain. She has a past medical history of asthma and is a tobacco smoker. She has not taken anything for her symptoms prior to arrival today. Patient says that she has a known allergy to mothballs which she accidentally touched about 2 weeks ago but nothing recently. ED Past Medical Hx - Past Medical History Previous Medical History?: Yes Hx Hypertension: No Hx Heart Attack/AMI: No Hx Liver Disease: No Hx Renal Disease: No Hx Sickle Cell Disease: No Hx Arthritis: Yes Hx Seizures: No Hx Asthma: Yes (last inhaler mos ago) Hx HIV: No - Surgical History Past Surgical History?: Yes Additional Surgical History: spinal surgery,bladder surgery,tubal ligation, hysterectomy - Social History Smoking Status: Current Every Day Smoker Substance Use Type: None - Medications Home Medications: Home Medications Medication Instructions Recorded Confirmed Last Taken Type FLUoxetine HCL [PROzac] 40 mg PO QDAY 10/02/13 11/19/16 11/20/16 History clonazePAM [KlonoPIN] 5 mg PO BID 10/02/13 11/19/16 11/20/16 History ALBUTEROL Inhaler (OR & NICU) 2 puff IH QID PRN 11/19/16 11/21/16 2 Months Ago History [Proair] ~09/20/16 ARIPiprazole [Abilify] 10 mg PO DAILY 11/19/16 11/19/16 11/20/16 History Benztropine [Cogentin] 0.5 mg PO HS 11/19/16 11/19/16 11/20/16 History Propranolol HCl 20 mg PO BID 11/19/16 11/19/16 11/20/16 History Docusate Sodium [Colace] 100 mg PO BID PRN #60 capsule 02/02/17 Unknown Rx Ibuprofen [Motrin] 800 mg PO Q8HR PRN #60 tablet 11/22/16 Unknown Rx Oxycodone HCl/Acetaminophen 1 each PO Q6HR PRN #45 tablet 11/22/16 Unknown Rx [Percocet 7.5/325 mg] ALBUTEROL NEB's [Proventil 0.083% 2.5 mg IH TID PRN #1 box 06/10/19 Unknown Rx NEBS] Beclomethasone Dipropionate [Qvar 1 puff IH QDAY #1 hfa.aeroba 06/10/19 Unknown Rx Redihaler] predniSONE [Deltasone] 20 mg PO QDAY #4 tab 06/10/19 Unknown Rx Benzonatate [Tessalon Perles] 100 mg PO Q8HR #30 capsule 06/21/19 Unknown Rx Doxycycline Hyclate [Doxycycline 100 mg PO Q12HR #20 tab 06/21/19 Unknown Rx Hyclate TAB] Prednisone [predniSONE 10 mg 10 mg PO DAILY #21 tab.ds.pk 06/21/19 Unknown Rx (6-Day Pack, 21 Tabs)] Famotidine [Pepcid] 20 mg PO BID #8 tablet 09/07/19 Unknown Rx diphenhydrAMINE [Benadryl CAP] 25 mg PO Q8HR PRN #12 capsule 09/07/19 Unknown Rx predniSONE [Deltasone] 20 mg PO QDAY #4 tab 09/07/19 Unknown Rx ED Review of Systems ROS: Stated complaint: ASTHMA HIVES Other details as noted in HPI Comment: All other systems reviewed and negative Constitutional: denies: chills, fever Respiratory: denies: shortness of breath Cardiovascular: denies: chest pain Gastrointestinal: denies: abdominal pain Skin: rash, pruritus Physical Exam - Physical Exam Vital Signs: Vital Signs 09/07/19 07:40 Temperature 98.7 F Pulse Rate 111 H Respiratory 22 Rate Blood Pressure 104/85 O2 Sat by Pulse 97 Oximetry Physical Exam: GENERAL: The patient is well-developed well-nourished. HENT: Normocephalic. Atraumatic. Patient has moist mucous membranes. EYES: Extraocular motions are intact. Pupils equal reactive to light bilaterally. NECK: Supple. Trachea is midline. CHEST/LUNGS: Clear to auscultation. There is no respiratory distress noted. HEART/CARDIOVASCULAR: Regular. There is no tachycardia. There is no murmur. ABDOMEN: There is no abdominal distention. SKIN: The patient has diffuse urticaria. There are excoriations consistent with her pruritus. NEURO: The patient is awake, alert, and oriented. The patient is cooperative. The patient has no focal neurologic deficits. Normal speech. MUSCULOSKELETAL: There is no tenderness or deformity. There is no evidence of acute injury. ED Course Vital Signs 09/07/19 07:40 Temperature 98.7 F Pulse Rate 111 H Respiratory 22 Rate Blood Pressure 104/85 O2 Sat by Pulse 97 Oximetry ED Medical Decision Making - Medical Decision Making This patient presents to the emergency department with an allergic reaction with diffuse urticaria to some unknown allergen. Apparently this is the third or fourth visit in the last few weeks for the same issues. Her vital signs have been stable throughout her ED course including being afebrile. She was given steroids, Benadryl and Pepcid. Upon reevaluation the urticaria is greatly improved. She appears safe for discharge home at this time. No signs of any angioedema or anaphylaxis. She will be given a prescription for a 4 day course of the same medications that were given here. She has been instructed to follow-up with the primary care physician and an education diagnostician, and return to the ER with any worsening of her symptoms or any acute distress. - Differential Diagnosis complement deficiency, dermatitis, allergic reaction Critical Care Time: No Critical care attestation.: If time is entered above; I have spent that time in minutes in the direct care of this critically ill patient, excluding procedure time. ED Disposition Clinical Impression: Urticaria Allergic reaction Qualifiers: Encounter type: initial encounter Qualified Code(s): T78.40XA - Allergy, unspecified, initial encounter Disposition: DC-01 TO HOME OR SELFCARE Is pt being admited?: No Condition: Stable Instructions: Urticaria (ED) Additional Instructions: Please follow-up with an education diagnostician to try and find out what it is that you are allergic to. Take the medications as prescribed. Return to the emergency Department with any worsening of your symptoms, swelling of the lips or tongue, tightening/swelling of the throat, shortness of breath, chest pain, or with any acute distress. Prescriptions: diphenhydrAMINE [Benadryl CAP] 25 mg PO Q8HR PRN #12 capsule PRN Reason: Allergic Reaction predniSONE [Deltasone] 20 mg PO QDAY #4 tab Famotidine [Pepcid] 20 mg PO BID #8 tablet Referrals: PRIMARY CARE, [Primary Care Provider] - 2-3 Days Forms: Work/School Release Form(ED) Time of Disposition: 09:30
[2019-09-07] MEDS ORDERED: KETOROLAC 30 MG/1 ML INJ IV ONE (09:02)
[2019-09-07 09:42] VITALS: BP 104/64
== END 2019-09-07 09:45 | disposition home or self-care (01) ==
LOC: ED 07:31
DX: L50.0 Allergic urticaria (principal); M19.90 Unspecified osteoarthritis, unspecified site; J45.909 Unspecified asthma, uncomplicated; F17.200 Nicotine dependence, unspecified, uncomplicated; Z98.890 Other specified postprocedural states; Z98.51 Tubal ligation status; Z90.710 Acquired absence of both cervix and uterus; Z79.899 Other long term (current) drug therapy; Z88.2 Allergy status to sulfonamides; Z88.8 Allergy status to other drugs, medicaments and biological substances
CPT/HCPCS: 96374; 96375; 99282; J1200; J1885; J2930

== ENCOUNTER 2020-08-30 05:31 | Emergency (ER) | payer MEDICARE ==
[2020-08-30 05:53] VITALS: BP 107/62
[2020-08-30 06:12] LABS: Bacteria,Urine 1+ /HPF (Negative); Bilirubin,Urine NEG (Negative); Blood,Urine LG (Negative); Color,Urine Yellow (Yellow); Mucus,Urine 3+ /HPF; Urobilinogen,Urine < 2.0 mg/dL (<2.0)
[2020-08-30 06:13] LABS: WBC,Urine > 182.0 /HPF (0.0-6.0)
--- NOTE | 2020-08-30 08:41 | Emergency Department Report ---
<MILIND CALLAWAY - Last Filed: 08/30/20 08:34> ED General Adult HPI - General Chief complaint: Urogenital-Female Stated complaint: FREQUENT URINATION Time Seen by Provider: 08/30/20 07:58 Source: patient Mode of arrival: Ambulatory Limitations: No Limitations - History of Present Illness Initial comments: 44-year-old -Japanese female patient presents with complaints of urinary frequency and tingling post urination x2 days. She denies any vaginal discharge, dyspareunia, hematuria, vaginal bleeding, or fever/chills/sweats. She does report mild lower abdominal pain. Patient also denies any past medical history. She does report past surgical history of a hysterectomy. Severity scale (0 -10): 3 - Related Data Home Medications Medication Instructions Recorded Confirmed Last Taken FLUoxetine HCL [PROzac] 40 mg PO QDAY 10/02/13 11/19/16 11/20/16 clonazePAM [KlonoPIN] 5 mg PO BID 10/02/13 11/19/16 11/20/16 ARIPiprazole [Abilify] 10 mg PO DAILY 11/19/16 11/19/16 11/20/16 Albuterol Mdi (or & Nicu Only) 2 puff IH QID PRN 11/19/16 11/21/16 2 Months Ago [Proair] ~09/20/16 Benztropine [Cogentin] 0.5 mg PO HS 11/19/16 11/19/16 11/20/16 Propranolol HCl 20 mg PO BID 11/19/16 11/19/16 11/20/16 Previous Rx's Medication Instructions Recorded Last Taken Type Docusate Sodium [Colace] 100 mg PO BID PRN #60 capsule 11/22/16 Unknown Rx Ibuprofen [Motrin] 800 mg PO Q8HR PRN #60 tablet 11/22/16 Unknown Rx Oxycodone HCl/Acetaminophen 1 each PO Q6HR PRN #45 tablet 11/22/16 Unknown Rx [Percocet 7.5/325 mg] ALBUTEROL NEB's [Proventil 0.083% 2.5 mg IH TID PRN #1 box 06/10/19 Unknown Rx NEBS] Beclomethasone Dipropionate [Qvar 1 puff IH QDAY #1 hfa.aeroba 08/21/19 Unknown Rx Redihaler] predniSONE [Deltasone] 20 mg PO QDAY #4 tab 06/10/19 Unknown Rx Benzonatate [Tessalon Perles] 100 mg PO Q8HR #30 capsule 06/21/19 Unknown Rx Doxycycline Hyclate [Doxycycline 100 mg PO Q12HR #20 tab 06/21/19 Unknown Rx Hyclate TAB] Prednisone [predniSONE 10 mg 10 mg PO DAILY #21 tab.ds.pk 06/21/19 Unknown Rx (6-Day Pack, 21 Tabs)] Famotidine [Pepcid] 20 mg PO BID #8 tablet 09/07/19 Unknown Rx diphenhydrAMINE [Benadryl CAP] 25 mg PO Q8HR PRN #12 capsule 09/07/19 Unknown Rx predniSONE [Deltasone] 20 mg PO QDAY #4 tab 09/07/19 Unknown Rx Fluconazole (Nf) [Diflucan TAB] 150 mg PO ONCE PRN 1 Days #1 tablet 08/30/20 Unknown Rx Nitrofurantoin [place]/M-Cryst 100 mg PO Q12HR 5 Days #10 capsule 08/30/20 Unknown Rx [Macrobid CAP] Allergies Allergy/AdvReac Type Severity Reaction Status Date / Time Sulfa (Sulfonamide Allergy Intermediate Rash Verified 11/19/16 15:15 Antibiotics) fexofenadine HCl AdvReac Severe BLURRED Verified 11/19/16 15:15 [From Mayelin] VISION POWDER IN GLOVES Allergy Rash Uncoded 03/12/16 15:44 ED Review of Systems Constitutional: denies: chills, diaphoresis, fever, malaise, weakness Respiratory: denies: cough, shortness of breath ED Past Medical Hx - Past Medical History Previous Medical History?: Yes Hx Hypertension: No Hx Heart Attack/AMI: No Hx Liver Disease: No Hx Renal Disease: No Hx Sickle Cell Disease: No Hx Arthritis: Yes Hx Seizures: No Hx Asthma: Yes (last inhaler mos ago) Hx HIV: No - Surgical History Past Surgical History?: Yes Additional Surgical History: spinal surgery,bladder surgery,tubal ligation, hysterectomy - Social History Smoking Status: Current Every Day Smoker - Medications Home Medications: Home Medications Medication Instructions Recorded Confirmed Last Taken Type FLUoxetine HCL [PROzac] 40 mg PO QDAY 10/02/13 11/19/16 11/20/16 History clonazePAM [KlonoPIN] 5 mg PO BID 10/02/13 11/19/16 11/20/16 History ARIPiprazole [Abilify] 10 mg PO DAILY 11/19/16 11/19/16 11/20/16 History Albuterol Mdi (or & Nicu Only) 2 puff IH QID PRN 11/19/16 11/21/16 2 Months Ago History [Proair] ~09/20/16 Benztropine [Cogentin] 0.5 mg PO HS 11/19/16 11/19/16 11/20/16 History Propranolol HCl 20 mg PO BID 11/19/16 11/19/16 11/20/16 History Docusate Sodium [Colace] 100 mg PO BID PRN #60 capsule 11/22/16 Unknown Rx Ibuprofen [Motrin] 800 mg PO Q8HR PRN #60 tablet 11/22/16 Unknown Rx Oxycodone HCl/Acetaminophen 1 each PO Q6HR PRN #45 tablet 11/22/16 Unknown Rx [Percocet 7.5/325 mg] ALBUTEROL NEB's [Proventil 0.083% 2.5 mg IH TID PRN #1 box 06/10/19 Unknown Rx NEBS] Beclomethasone Dipropionate [Qvar 1 puff IH QDAY #1 hfa.aeroba 06/10/19 Unknown Rx Redihaler] predniSONE [Deltasone] 20 mg PO QDAY #4 tab 06/10/19 Unknown Rx Benzonatate [Tessalon Perles] 100 mg PO Q8HR #30 capsule 06/21/19 Unknown Rx Doxycycline Hyclate [Doxycycline 100 mg PO Q12HR #20 tab 06/21/19 Unknown Rx Hyclate TAB] Prednisone [predniSONE 10 mg 10 mg PO DAILY #21 tab.ds.pk 06/21/19 Unknown Rx (6-Day Pack, 21 Tabs)] Famotidine [Pepcid] 20 mg PO BID #8 tablet 09/07/19 Unknown Rx diphenhydrAMINE [Benadryl CAP] 25 mg PO Q8HR PRN #12 capsule 09/07/19 Unknown Rx predniSONE [Deltasone] 20 mg PO QDAY #4 tab 09/07/19 Unknown Rx Fluconazole (Nf) [Diflucan TAB] 150 mg PO ONCE PRN 1 Days #1 tablet 08/30/20 Unknown Rx Nitrofurantoin [place]/M-Cryst 100 mg PO Q12HR 5 Days #10 capsule 08/30/20 Unknown Rx [Macrobid CAP] ED Physical Exam - General Limitations: No Limitations General appearance: alert, in no apparent distress - Head Head exam: Present: atraumatic, normocephalic - Eye Eye exam: Present: normal appearance. Absent: scleral icterus - Respiratory Respiratory exam: Absent: respiratory distress - Cardiovascular Cardiovascular Exam: Present: regular rate, normal rhythm. Absent: systolic murmur, diastolic murmur, rubs, gallop - GI/Abdominal GI/Abdominal exam: Present: soft, normal bowel sounds. Absent: distended, tenderness, guarding, rebound, rigid - Extremities Exam Extremities exam: Present: full ROM - Back Exam Back exam: Absent: CVA tenderness (R), CVA tenderness (L) - Neurological Exam Neurological exam: Present: alert, oriented X3 - Psychiatric Psychiatric exam: Present: normal affect, normal mood - Skin Skin exam: Present: warm, dry, intact, normal color. Absent: rash, cyanosis, diaphoretic ED Medical Decision Making - Medical Decision Making 44-year-old -Japanese female patient presents with complaints of urinary frequency and tingling post urination x2 days. She denies any vaginal discharge, dyspareunia, hematuria, vaginal bleeding, or fever/chills/sweats. She does report mild lower abdominal pain. Patient also denies any past medical history. She does report past surgical history of a hysterectomy. Abdomen is nondistended and nontender without rebound or guarding on exam. No CVA tenderness is noted. UA shows >182 WBCs. She is afebrile nontachycardic. Patient has allergy to Bactrim. She reports she was recently on Amoxil. Will treat for UTI with Macrobid. Urine culture sent. Recommend follow-up with PCP in 3 days. Discussed signs and symptoms that should prompt immediate return to the emergency department in detail with patient verbalized understanding. She is well-appearing and stable for discharge home. ED Disposition Clinical Impression: Cystitis Disposition: DC-01 TO HOME OR SELFCARE Is pt being admited?: No Condition: Stable Instructions: Urinary Tract Infection, Adult Prescriptions: Fluconazole (Nf) [Diflucan TAB] 150 mg PO ONCE PRN 1 Days #1 tablet PRN Reason: yeast infection Nitrofurantoin [place]/M-Cryst [Macrobid CAP] 100 mg PO Q12HR 5 Days #10 capsule Referrals: WILL VILLAGOMEZ MD [Primary Care Provider] - 09/02/20 <AVERY PERDOMO - Last Filed: 08/30/20 15:26> ED Review of Systems ROS: Stated complaint: FREQUENT URINATION Other details as noted in HPI ED Course Vital Signs 08/30/20 05:36 Temperature 97.4 F L Pulse Rate 74 Respiratory 17 Rate Blood Pressure 107/62 O2 Sat by Pulse 100 Oximetry Critical care attestation.: If time is entered above; I have spent that time in minutes in the direct care of this critically ill patient, excluding procedure time. ED Disposition Is pt being admited?: No Does the pt Need Aspirin: No
== END 2020-08-30 09:27 | disposition home or self-care (01) ==
LOC: ED 05:31
DX: N30.80 Other cystitis without hematuria (principal); J45.909 Unspecified asthma, uncomplicated; M13.88 Other specified arthritis, other site; F17.200 Nicotine dependence, unspecified, uncomplicated; Z98.890 Other specified postprocedural states; Z98.51 Tubal ligation status; Z90.710 Acquired absence of both cervix and uterus; Z88.1 Allergy status to other antibiotic agents; Z88.2 Allergy status to sulfonamides
CPT/HCPCS: 81001; 87076; 87086; 87186; 99283

== ENCOUNTER 2021-09-08 00:47 | Emergency (ER) | payer MEDICARE ==
[2021-09-08] MEDS ORDERED: ONDANSETRON 4 MG ODT TAB PO ONE (01:53)
[2021-09-08] MEDS ORDERED: SODIUM CHLORIDE 0.9% 1000 ML 1,000 ML IV ONE (01:57)
--- NOTE | 2021-09-08 02:03 | Emergency Department Report ---
ED General Adult HPI - General Chief complaint: Nausea/Vomiting/Diarrhea Stated complaint: NAUSEA VOMITING AND BODYACHES Time Seen by Provider: 09/08/21 01:56 Source: patient Mode of arrival: Ambulatory Limitations: No Limitations - History of Present Illness Initial comments: Patient 45-year-old female with history of asthma, hyperthyroidism, hyperlipid emia who presents for abdominal pain and cramping nausea vomiting diarrhea for 4 days. Patient also endorses history of Covid 19 3 months ago. Symptoms are exacerbated by p.o. intake. Symptoms are relieved by nothing tried. He denies fevers chills there is no cough no shortness of breath. - Related Data Home Medications Medication Instructions Recorded Confirmed Last Taken FLUoxetine HCL [PROzac] 40 mg PO QDAY 10/02/13 11/19/16 11/20/16 clonazePAM [KlonoPIN] 5 mg PO BID 10/02/13 11/19/16 11/20/16 ARIPiprazole [Abilify] 10 mg PO DAILY 11/19/16 11/19/16 11/20/16 Albuterol Mdi (or & Nicu Only) 2 puff IH QID PRN 11/19/16 11/21/16 2 Months Ago [Proair] ~09/20/16 Benztropine [Cogentin] 0.5 mg PO HS 11/19/16 11/19/16 11/20/16 Propranolol HCl 20 mg PO BID 11/19/16 11/19/16 11/20/16 Previous Rx's Medication Instructions Recorded Last Taken Type Docusate Sodium [Colace] 100 mg PO BID PRN #60 capsule 11/22/16 Unknown Rx Ibuprofen [Motrin] 800 mg PO Q8HR PRN #60 tablet 11/22/16 Unknown Rx Oxycodone HCl/Acetaminophen 1 each PO Q6HR PRN #45 tablet 11/22/16 Unknown Rx [Percocet 7.5/325 mg] ALBUTEROL NEB's [Proventil 0.083% 2.5 mg IH TID PRN #1 box 06/10/19 Unknown Rx NEBS] Beclomethasone Dipropionate [Qvar 1 puff IH QDAY #1 hfa.aeroba 06/10/19 Unknown Rx Redihaler] predniSONE [Deltasone] 20 mg PO QDAY #4 tab 06/10/19 Unknown Rx Benzonatate [Tessalon Perles] 100 mg PO Q8HR #30 capsule 06/21/19 Unknown Rx Doxycycline Hyclate [Doxycycline 100 mg PO Q12HR #20 tab 06/21/19 Unknown Rx Hyclate TAB] Prednisone [predniSONE 10 mg 10 mg PO DAILY #21 tab.ds.pk 06/21/19 Unknown Rx (6-Day Pack, 21 Tabs)] Famotidine [Pepcid] 20 mg PO BID #8 tablet 09/07/19 Unknown Rx diphenhydrAMINE [Benadryl CAP] 25 mg PO Q8HR PRN #12 capsule 09/07/19 Unknown Rx predniSONE [Deltasone] 20 mg PO QDAY #4 tab 09/07/19 Unknown Rx Fluconazole (Nf) [Diflucan TAB] 150 mg PO ONCE PRN 1 Days #1 tablet 08/30/20 Unknown Rx Nitrofurantoin [place]/M-Cryst 100 mg PO Q12HR 5 Days #10 capsule 08/30/20 Unknown Rx [Macrobid CAP] cephALEXin [Keflex] 500 mg PO BID 7 Days #14 cap 09/08/21 Unknown Rx Allergies Allergy/AdvReac Type Severity Reaction Status Date / Time Sulfa (Sulfonamide Allergy Intermediate Rash Verified 11/19/16 15:15 Antibiotics) fexofenadine HCl AdvReac Severe BLURRED Verified 11/19/16 15:15 [From Mayelin] VISION POWDER IN GLOVES Allergy Rash Uncoded 03/12/16 15:44 ED Review of Systems ROS: Stated complaint: NAUSEA VOMITING AND BODYACHES Other details as noted in HPI Constitutional: malaise Eyes: denies: eye pain, eye discharge, vision change ENT: denies: ear pain, throat pain Respiratory: denies: cough, shortness of breath, wheezing Cardiovascular: denies: chest pain, palpitations Endocrine: no symptoms reported Gastrointestinal: abdominal pain, nausea, vomiting, diarrhea. denies: co nstipation, hematemesis, melena, hematochezia Genitourinary: denies: urgency, dysuria, frequency, hematuria, discharge Musculoskeletal: denies: back pain, joint swelling, arthralgia Skin: denies: rash, lesions Neurological: headache. denies: numbness, paresthesias, confusion, vertigo Psychiatric: denies: anxiety, depression Hematological/Lymphatic: denies: easy bleeding, easy bruising ED Past Medical Hx - Past Medical History Previous Medical History?: Yes Hx Hypertension: No Hx Heart Attack/AMI: No Hx Liver Disease: No Hx Renal Disease: No Hx Sickle Cell Disease: No Hx Arthritis: Yes Hx Seizures: No Hx Asthma: Yes (last inhaler mos ago) Hx HIV: No - Surgical History Past Surgical History?: Yes Additional Surgical History: spinal surgery,bladder surgery,tubal ligation, hysterectomy - Social History Smoking Status: Current Every Day Smoker - Medications Home Medications: Home Medications Medication Instructions Recorded Confirmed Last Taken Type FLUoxetine HCL [PROzac] 40 mg PO QDAY 10/02/13 11/19/16 11/20/16 History clonazePAM [KlonoPIN] 5 mg PO BID 10/02/13 11/19/16 11/20/16 History ARIPiprazole [Abilify] 10 mg PO DAILY 11/19/16 11/19/16 11/20/16 History Albuterol Mdi (or & Nicu Only) 2 puff IH QID PRN 11/19/16 11/21/16 2 Months Ago History [Proair] ~09/20/16 Benztropine [Cogentin] 0.5 mg PO HS 11/19/16 11/19/16 11/20/16 History Propranolol HCl 20 mg PO BID 11/19/16 11/19/16 11/20/16 History Docusate Sodium [Colace] 100 mg PO BID PRN #60 capsule 11/22/16 Unknown Rx Ibuprofen [Motrin] 800 mg PO Q8HR PRN #60 tablet 11/22/16 Unknown Rx Oxycodone HCl/Acetaminophen 1 each PO Q6HR PRN #45 tablet 11/22/16 Unknown Rx [Percocet 7.5/325 mg] ALBUTEROL NEB's [Proventil 0.083% 2.5 mg IH TID PRN #1 box 06/10/19 Unknown Rx NEBS] Beclomethasone Dipropionate [Qvar 1 puff IH QDAY #1 hfa.aeroba 06/10/19 Unknown Rx Redihaler] predniSONE [Deltasone] 20 mg PO QDAY #4 tab 06/10/19 Unknown Rx Benzonatate [Tessalon Perles] 100 mg PO Q8HR #30 capsule 09/01/19 Unknown Rx Doxycycline Hyclate [Doxycycline 100 mg PO Q12HR #20 tab 06/21/19 Unknown Rx Hyclate TAB] Prednisone [predniSONE 10 mg 10 mg PO DAILY #21 tab.ds.pk 06/21/19 Unknown Rx (6-Day Pack, 21 Tabs)] Famotidine [Pepcid] 20 mg PO BID #8 tablet 09/07/19 Unknown Rx diphenhydrAMINE [Benadryl CAP] 25 mg PO Q8HR PRN #12 capsule 09/07/19 Unknown Rx predniSONE [Deltasone] 20 mg PO QDAY #4 tab 09/07/19 Unknown Rx Fluconazole (Nf) [Diflucan TAB] 150 mg PO ONCE PRN 1 Days #1 tablet 08/30/20 Unknown Rx Nitrofurantoin [place]/M-Cryst 100 mg PO Q12HR 5 Days #10 capsule 08/30/20 Unknown Rx [Macrobid CAP] cephALEXin [Keflex] 500 mg PO BID 7 Days #14 cap 09/08/21 Unknown Rx ED Physical Exam - General Limitations: No Limitations General appearance: alert, in no apparent distress - Head Head exam: Present: normocephalic, normal inspection - Eye Eye exam: Present: normal appearance, EOMI Pupils: Present: normal accommodation - ENT ENT exam: Present: mucous membranes moist - Neck Neck exam: Present: normal inspection, full ROM. Absent: tenderness - Respiratory Respiratory exam: Present: normal lung sounds bilaterally. Absent: respiratory distress, wheezes, stridor, chest wall tenderness - Cardiovascular Cardiovascular Exam: Present: regular rate, normal rhythm, normal heart sounds. Absent: systolic murmur, diastolic murmur, rubs, gallop - GI/Abdominal GI/Abdominal exam: Present: soft, normal bowel sounds. Absent: distended, tenderness, guarding, rebound, rigid, bruit, hernia - Rectal Rectal exam: Present: deferred - Extremities Exam Extremities exam: Present: normal inspection, full ROM. Absent: tenderness - Back Exam Back exam: Present: normal inspection, full ROM. Absent: tenderness, CVA tenderness (R), CVA tenderness (L) - Neurological Exam Neurological exam: Present: alert, oriented X3, CN II-XII intact, normal gait - Psychiatric Psychiatric exam: Present: normal affect, normal mood - Skin Skin exam: Present: warm, dry, intact, normal color. Absent: rash ED Course Vital Signs 09/08/21 00:50 Temperature 99.6 F Pulse Rate 96 H Respiratory 18 Rate Blood Pressure 104/64 O2 Sat by Pulse 100 Oximetry ED Medical Decision Making - Lab Data Result diagrams: 09/08/21 01:56 09/08/21 01:56 Labs 09/08/21 09/08/21 09/08/21 01:56 01:56 01:56 WBC 1.9 L* RBC 5.08 H Hgb 14.3 Hct 46.0 H MCV 91 MCH 28 MCHC 31 RDW 12.7 L Plt Count 92 L Sodium 133 L Potassium 4.4 Chloride 97.3 L Carbon Dioxide 25 Anion Gap 15 BUN 9 Creatinine 0.7 Estimated GFR > 60 BUN/Creatinine Ratio 13 Glucose 102 H Calcium 8.7 Total Bilirubin 0.40 AST 43 H ALT 22 Alkaline Phosphatase 61 Total Protein 7.5 Albumin 4.0 Albumin/Globulin Ratio 1.1 Lipase 52 HCG, Qual Negative Urine Color Urine Turbidity Urine pH Ur Specific [place] Urine Protein Urine Glucose (UA) Urine Ketones Urine Blood Urine Nitrite Urine Bilirubin Urine Urobilinogen Ur Leukocyte Esterase Urine WBC (Auto) Urine RBC (Auto) U Epithel Cells (Auto) Urine Mucus 09/08/21 02:10 WBC RBC Hgb Hct MCV MCH MCHC RDW Plt Count Sodium Potassium Chloride Carbon Dioxide Anion Gap BUN Creatinine Estimated GFR BUN/Creatinine Ratio Glucose Calcium Total Bilirubin AST ALT Alkaline Phosphatase Total Protein Albumin Albumin/Globulin Ratio Lipase HCG, Qual Urine Color Yellow Urine Turbidity Slightly-cloudy Urine pH 6.0 Ur Specific [place] 1.025 Urine Protein 100 mg/dl Urine Glucose (UA) Neg Urine Ketones Neg Urine Blood Mod Urine Nitrite Neg Urine Bilirubin Neg Urine Urobilinogen 2.0 Ur Leukocyte Esterase Mod Urine WBC (Auto) 64.0 H Urine RBC (Auto) 42.0 U Epithel Cells (Auto) 13.0 Urine Mucus 3+ - Radiology Data Radiology results: report reviewed, image reviewed CT ABDOMEN AND PELVIS WITHOUT CONTRAST INDICATION / CLINICAL INFORMATION: Abdominal pain with cramping and N/V/D x 4 days. TECHNIQUE: Axial CT images were obtained through the abdomen and pelvis without IV contrast. All CT scans at this location are performed using CT dose reduction for ALARA by means of automated exposure control. COMPARISON: None available. FINDINGS: LOWER CHEST: No significant abnormality. LIVER: No significant abnormality. GALLBLADDER: No significant abnormality. BILE DUCTS: No significant abnormality. PANCREAS: No significant abnormality. SPLEEN: No significant abnormality. ADRENALS: No significant abnormality. RIGHT KIDNEY / URETER: No significant abnormality. LEFT KIDNEY / URETER: No significant abnormality. STOMACH / SMALL BOWEL: No significant abnormality. COLON: No significant abnormality. APPENDIX: No significant abnormality. PERITONEUM: No free fluid. No free air. No fluid collection. LYMPH NODES: No significant adenopathy. VASCULAR STRUCTURES: No significant abnormality. URINARY BLADDER: No significant abnormality. REPRODUCTIVE ORGANS: Previous hysterectomy. ADDITIONAL FINDINGS: None. SKELETAL SYSTEM: No significant abnormality. IMPRESSION: No acute abnormality. Signer Name: Gilmar Horne MD Signed: 09/08/2021 3:24 AM Workstation Name: [email or web address] - Medical Decision Making CT normal no evidence of pyelonephritis , Ua: pos leuk, wbc, bact , blood, plan tx for UTI , patient will follow up with Dr. Mattson in 2 days, return to emergency if symptoms worsen. Will be DC'd to home with prescriptions in stable condition at this time. Patient is currently tolerating p.o. intake without nausea vomiting. Critical care attestation.: If time is entered above; I have spent that time in minutes in the direct care of this critically ill patient, excluding procedure time. ED Disposition Clinical Impression: UTI (urinary tract infection) Qualifiers: Urinary tract infection type: acute cystitis Hematuria presence: without hematuria Qualified Code(s): N30.00 - Acute cystitis without hematuria Disposition: HOME / SELF CARE / HOMELESS Is pt being admited?: No Does the pt Need Aspirin: No Condition: Stable Instructions: Urinary Tract Infection, Adult Additional Instructions: Take medications as prescribed, follow-up with Dr. Crum in 2 to 3 days. Return to emergency should symptoms worsen. Prescriptions: cephALEXin [Keflex] 500 mg PO BID 7 Days #14 cap Forms: Work/School Release Form(ED) Time of Disposition: 03:56
[2021-09-08 02:24] LABS: Mean Corpuscular HGB Conc 31 % (30-34); Mean Corpuscular Volume 91 fl (79-97); Red Blood Count 5.08 M/mm3 (3.65-5.03); Red Cell Distribution Width 12.7 % (13.2-15.2)
[2021-09-08 02:35] LABS: Hemoglobin 14.3 gm/dl (10.1-14.3); Platelet Count 92 K/mm3 (140-440)
[2021-09-08 02:39] LABS: Alanine Aminotransferase 22 units/L (7-56); Blood Urea Nitrogen 9 mg/dL (7-17); Calcium 8.7 mg/dL (8.4-10.2); Hemolysis Index 6
[2021-09-08 02:41] LABS: BUN/Creatinine Ratio 13
[2021-09-08 02:42] LABS: Bilirubin,Urine NEG (Negative); Blood,Urine MOD (Negative); Color,Urine Yellow (Yellow); Mucus,Urine 3+ /HPF
[2021-09-08] MEDS ORDERED: KETOROLAC 30 MG/1 ML INJ IV ONE (02:48)
--- NOTE | 2021-09-08 03:28 | Cat Scan Report ---
CT ABDOMEN AND PELVIS WITHOUT CONTRAST INDICATION / CLINICAL INFORMATION: Abdominal pain with cramping and N/V/D x 4 days. TECHNIQUE: Axial CT images were obtained through the abdomen and pelvis without IV contrast. All CT scans at this location are performed using CT dose reduction for ALARA by means of automated exposure control. COMPARISON: None available. FINDINGS: LOWER CHEST: No significant abnormality. LIVER: No significant abnormality. GALLBLADDER: No significant abnormality. BILE DUCTS: No significant abnormality. PANCREAS: No significant abnormality. SPLEEN: No significant abnormality. ADRENALS: No significant abnormality. RIGHT KIDNEY / URETER: No significant abnormality. LEFT KIDNEY / URETER: No significant abnormality. STOMACH / SMALL BOWEL: No significant abnormality. COLON: No significant abnormality. APPENDIX: No significant abnormality. PERITONEUM: No free fluid. No free air. No fluid collection. LYMPH NODES: No significant adenopathy. VASCULAR STRUCTURES: No significant abnormality. URINARY BLADDER: No significant abnormality. REPRODUCTIVE ORGANS: Previous hysterectomy. ADDITIONAL FINDINGS: None. SKELETAL SYSTEM: No significant abnormality. IMPRESSION: No acute abnormality. Signer Name: Gilmar Horne MD Signed: 09/08/2021 3:24 AM Workstation Name: [id number]
[2021-09-08] MEDS ORDERED: cephALEXin 500 MG CAP PO ONE (03:44)
[2021-09-08 03:45] LABS: Total Cells Counted 65
[2021-09-08 03:46] LABS: Platelet Estimate Consistent w Auto; RBC Morphology Normal
[2021-09-08 04:42] VITALS: BP 110/70
== END 2021-09-08 04:42 | disposition home or self-care (01) ==
LOC: ED 00:47
DX: N30.00 Acute cystitis without hematuria (principal); J45.909 Unspecified asthma, uncomplicated; F17.200 Nicotine dependence, unspecified, uncomplicated
CPT/HCPCS: 36415; 74176; 80053; 81001; 83690; 84703; 85007; 85025; 87086; 96360; 99284; J7030; J3490; Q0162

== ENCOUNTER 2022-01-29 05:07 | Emergency (ER) | payer MEDICARE ==
[2022-01-29 08:02] LABS: Bilirubin,Urine NEG (Negative); Blood,Urine SM (Negative); Color,Urine Yellow (Yellow); Mucus,Urine 3+ /HPF; Protein,Urine <15 mg/dL mg/dL (Negative); Urobilinogen,Urine < 2.0 mg/dL (<2.0)
[2022-01-29 08:07] LABS: HCG Qualitative,Urine Negative (Negative)
--- NOTE | 2022-01-29 08:15 | Emergency Department Report ---
- General Chief complaint: Weakness Stated complaint: DIZZY Time Seen by Provider: 01/29/22 07:18 Source: patient Mode of arrival: Ambulatory Limitations: No Limitations - History of Present Illness Initial comments: 46-year-old black female with a past medical history of hypertension, hyperlipidemia, hypothyroidism, anemia, depression, bipolar disorder, and anxiety presents to the emergency department for evaluation of 3-week history of worsening weakness with some dizziness. She denies any pain at all but states that this dizziness and weakness has been getting progressively worse. She denies any vaginal bleeding, chest pain, abdominal pain, nausea, vomiting, fever, diaphoresis. MD Complaint: generalized weakness, lack of energy -: Gradual, week(s) (3) Severity scale (0 -10): 0 Associated Symptoms: denies: chest pain, confusion, dark stools, diaphoresis, dysuria, easy bruising, fever/chills, headaches, loss of appetite, nausea/vomiting, myalgias, rash, shortness of breath, syncope - Related Data Home Medications Medication Instructions Recorded Confirmed Last Taken FLUoxetine HCL [PROzac] 40 mg PO QDAY 10/02/13 11/19/16 11/20/16 clonazePAM [KlonoPIN] 5 mg PO BID 10/02/13 11/19/16 11/20/16 ARIPiprazole [Abilify] 10 mg PO DAILY 11/19/16 11/19/16 11/20/16 Albuterol Mdi (or & Nicu Only) 2 puff IH QID PRN 11/19/16 11/21/16 2 Months Ago [Proair] ~09/20/16 Benztropine [Cogentin] 0.5 mg PO HS 11/19/16 11/19/16 11/20/16 Propranolol HCl 20 mg PO BID 11/19/16 11/19/16 11/20/16 Previous Rx's Medication Instructions Recorded Last Taken Type Docusate Sodium [Colace] 100 mg PO BID PRN #60 capsule 11/22/16 Unknown Rx Ibuprofen [Motrin] 800 mg PO Q8HR PRN #60 tablet 11/22/16 Unknown Rx Oxycodone HCl/Acetaminophen 1 each PO Q6HR PRN #45 tablet 11/22/16 Unknown Rx [Percocet 7.5/325 mg] ALBUTEROL NEB's [Proventil 0.083% 2.5 mg IH TID PRN #1 box 06/10/19 Unknown Rx NEBS] Beclomethasone Dipropionate [Qvar 1 puff IH QDAY #1 hfa.aeroba 06/10/19 Unknown Rx Redihaler] predniSONE [Deltasone] 20 mg PO QDAY #4 tab 06/10/19 Unknown Rx Benzonatate [Tessalon Perles] 100 mg PO Q8HR #30 capsule 06/21/19 Unknown Rx Doxycycline Hyclate [Doxycycline 100 mg PO Q12HR #20 tab 06/21/19 Unknown Rx Hyclate TAB] Prednisone [predniSONE 10 mg 10 mg PO DAILY #21 tab.ds.pk 06/21/19 Unknown Rx (6-Day Pack, 21 Tabs)] Famotidine [Pepcid] 20 mg PO BID #8 tablet 09/07/19 Unknown Rx diphenhydrAMINE [Benadryl CAP] 25 mg PO Q8HR PRN #12 capsule 09/07/19 Unknown Rx predniSONE [Deltasone] 20 mg PO QDAY #4 tab 09/07/19 Unknown Rx Fluconazole (Nf) [Diflucan TAB] 150 mg PO ONCE PRN 1 Days #1 tablet 08/30/20 Unknown Rx Nitrofurantoin Hemphill/M-Cryst 100 mg PO Q12HR 5 Days #10 capsule 08/30/20 Unknown Rx [Macrobid CAP] cephALEXin [Keflex] 500 mg PO BID 7 Days #14 cap 09/08/21 Unknown Rx Allergies Allergy/AdvReac Type Severity Reaction Status Date / Time Sulfa (Sulfonamide Allergy Intermediate Rash Verified 11/19/16 15:15 Antibiotics) fexofenadine HCl AdvReac Severe BLURRED Verified 11/19/16 15:15 [From Mayelin] VISION POWDER IN GLOVES Allergy Rash Uncoded 03/12/16 15:44 ED Review of Systems ROS: Stated complaint: DIZZY Other details as noted in HPI Comment: All other systems reviewed and negative Constitutional: denies: chills, fever Eyes: denies: vision change ENT: denies: hearing loss, congestion Respiratory: denies: cough, shortness of breath, SOB with exertion, SOB at rest, wheezing Cardiovascular: denies: chest pain, palpitations, dyspnea on exertion, orthopnea, edema, syncope, paroxysmal nocturnal dyspnea Gastrointestinal: denies: abdominal pain, nausea, vomiting, diarrhea, constipation, hematemesis, melena, hematochezia Genitourinary: denies: urgency, dysuria, frequency, hematuria, discharge, abnormal menses Musculoskeletal: denies: back pain, joint swelling Skin: denies: rash, lesions Neurological: weakness. denies: headache, numbness, confusion, abnormal gait, vertigo Psychiatric: denies: anxiety, depression ED Past Medical Hx - Past Medical History Previous Medical History?: Yes Hx Hypertension: No Hx Heart Attack/AMI: No Hx Liver Disease: No Hx Renal Disease: No Hx Sickle Cell Disease: No Hx Arthritis: Yes Hx Seizures: No Hx Asthma: Yes (last inhaler mos ago) Hx HIV: No - Surgical History Past Surgical History?: Yes Additional Surgical History: spinal surgery,bladder surgery,tubal ligation, hysterectomy - Social History Smoking Status: Current Every Day Smoker - Medications Home Medications: Home Medications Medication Instructions Recorded Confirmed Last Taken Type FLUoxetine HCL [PROzac] 40 mg PO QDAY 10/02/13 11/19/16 11/20/16 History clonazePAM [KlonoPIN] 5 mg PO BID 10/02/13 11/19/16 11/20/16 History ARIPiprazole [Abilify] 10 mg PO DAILY 11/19/16 11/19/16 11/20/16 History Albuterol Mdi (or & Nicu Only) 2 puff IH QID PRN 11/19/16 11/21/16 2 Months Ago History [Proair] ~09/20/16 Benztropine [Cogentin] 0.5 mg PO HS 11/19/16 11/19/16 11/20/16 History Propranolol HCl 20 mg PO BID 11/19/16 11/19/16 11/20/16 History Docusate Sodium [Colace] 100 mg PO BID PRN #60 capsule 11/22/16 Unknown Rx Ibuprofen [Motrin] 800 mg PO Q8HR PRN #60 tablet 11/22/16 Unknown Rx Oxycodone HCl/Acetaminophen 1 each PO Q6HR PRN #45 tablet 11/22/16 Unknown Rx [Percocet 7.5/325 mg] ALBUTEROL NEB's [Proventil 0.083% 2.5 mg IH TID PRN #1 box 06/10/19 Unknown Rx NEBS] Beclomethasone Dipropionate [Qvar 1 puff IH QDAY #1 hfa.aeroba 06/10/19 Unknown Rx Redihaler] predniSONE [Deltasone] 20 mg PO QDAY #4 tab 06/10/19 Unknown Rx Benzonatate [Tessalon Perles] 100 mg PO Q8HR #30 capsule 06/21/19 Unknown Rx Doxycycline Hyclate [Doxycycline 100 mg PO Q12HR #20 tab 06/21/19 Unknown Rx Hyclate TAB] Prednisone [predniSONE 10 mg 10 mg PO DAILY #21 tab.ds.pk 06/21/19 Unknown Rx (6-Day Pack, 21 Tabs)] Famotidine [Pepcid] 20 mg PO BID #8 tablet 09/07/19 Unknown Rx diphenhydrAMINE [Benadryl CAP] 25 mg PO Q8HR PRN #12 capsule 09/07/19 Unknown Rx predniSONE [Deltasone] 20 mg PO QDAY #4 tab 09/07/19 Unknown Rx Fluconazole (Nf) [Diflucan TAB] 150 mg PO ONCE PRN 1 Days #1 tablet 08/30/20 Unknown Rx Nitrofurantoin Hemphill/M-Cryst 100 mg PO Q12HR 5 Days #10 capsule 08/30/20 Unknown Rx [Macrobid CAP] cephALEXin [Keflex] 500 mg PO BID 7 Days #14 cap 09/08/21 Unknown Rx ED Physical Exam - General Limitations: No Limitations General appearance: alert, in no apparent distress - Head Head exam: Present: atraumatic, normocephalic - Eye Eye exam: Present: normal appearance. Absent: conjunctival injection - Neck Neck exam: Present: normal inspection. Absent: tenderness, lymphadenopathy - Respiratory Respiratory exam: Present: normal lung sounds bilaterally. Absent: respiratory distress, wheezes, rales, rhonchi, chest wall tenderness, accessory muscle use - Cardiovascular Cardiovascular Exam: Present: regular rate, normal heart sounds - GI/Abdominal GI/Abdominal exam: Present: soft, normal bowel sounds. Absent: distended, tenderness, guarding, rebound, rigid - Extremities Exam Extremities exam: Present: normal inspection, full ROM, normal capillary refill. Absent: tenderness, pedal edema, joint swelling, calf tenderness - Back Exam Back exam: Present: normal inspection, full ROM. Absent: tenderness, CVA tenderness (R), CVA tenderness (L), vertebral tenderness - Neurological Exam Neurological exam: Present: alert, oriented X3, CN II-XII intact, normal gait. Absent: motor sensory deficit - Expanded Neurological Exam Expanded Patient oriented to: Present: person, place, time Speech: Present: fluid speech Cranial nerves: EOM's Intact: Normal, Gag Reflex: Normal, Tongue Deviation: Normal, Facial Sensation: Normal Sensory exam: Upper Extremity Light Touch: Normal, Lower Extremity Light Touch: Normal Motor strength exam: RUE: 5, LUE: 5, RLE: 5, LLE: 5 Best Eye Response (Andrew): (4) open spontaneously Best Motor Response (Andrew): (6) obeys commands Best Verbal Response ([place]): (5) oriented Andrew Total: 15 - Psychiatric Psychiatric exam: Present: normal affect, normal mood - Skin Skin exam: Present: warm, dry, intact, normal color ED Course Vital Signs 01/29/22 05:11 Temperature 98.9 F Pulse Rate 69 Respiratory 14 Rate Blood Pressure 132/65 [Right] O2 Sat by Pulse 98 Oximetry - Reevaluation(s) Reevaluation #1: 01/29/22 09:33 Patient now sitting up in bed talkative and active. ED Medical Decision Making - Lab Data Result diagrams: 01/29/22 07:38 01/29/22 07:38 - EKG Data Interpretation: no acute changes, normal EKG - Radiology Data Radiology results: report reviewed, image reviewed Chest x-ray: FINDINGS: Support devices: None. Heart: Within normal limits. Lungs/pleura: No acute air space or interstitial disease. No pneumothorax. Additional findings: None. IMPRESSION: No acute findings. No change since 06/21/2019 exam. - Medical Decision Making 46-year-old black female with a past medical history of hypertension, hyperlipidemia, hypothyroidism, anemia, depression, bipolar disorder, and anxiety presents to the emergency department for evaluation of 3-week history of worsening weakness with some dizziness. She denies any pain at all but states that this dizziness and weakness has been getting progressively worse. She denies any vaginal bleeding, chest pain, abdominal pain, nausea, vomiting, fever, diaphoresis. Patient noted to have low TSH level. She states that she has a history of hyperthyroidism and states that she has been taking her medication but does admit that she was scheduled to follow-up with her disk operator for an adjustment of dosage but she missed the appointment. She states that she has another appointment next week for dosage adjustment. She was advised to try to make appointment secondary to low TSH. No other gross abnormalities to labs, UA negative for and UTI, troponin within normal limits, EKG without any acute abnormalities noted, chest x-ray without any acute abnormalities noted. Patient appears to be in no acute distress and will be discharged home to follow-up with endocrinology as previously planned. She is advised to return to the emergency department for any worsening symptoms. Critical care attestation.: If time is entered above; I have spent that time in minutes in the direct care of this critically ill patient, excluding procedure time. ED Disposition Clinical Impression: Weakness, Low TSH level Disposition: 01 HOME / SELF CARE / HOMELESS Is pt being admited?: No Does the pt Need Aspirin: No Condition: Stable Instructions: Hyperthyroidism, Weakness, [id number] Additional Instructions: Take medications as previously prescribed at home. Follow-up with endocrinology as planned. Return to the emergency department for any worsening symptoms. Referrals: YUE MELLO MD [Primary Care Provider] - 3-5 Days ALMA PABLO MD [Staff Physician] - 3-5 Days Forms: Work/School Release Form(ED) Time of Disposition: 09:43
--- NOTE | 2022-01-29 08:42 | XRay Report ---
CHEST 2 VIEWS INDICATION: chest pain. COMPARISON: 06/21/2019 FINDINGS: Support devices: None. Heart: Within normal limits. Lungs/pleura: No acute air space or interstitial disease. No pneumothorax. Additional findings: None. IMPRESSION: No acute findings. No change since 06/21/2019 exam. Signer Name: Lester Bruno Jr, MD Signed: 01/29/2022 8:38 AM Workstation Name: [id number]
[2022-01-29] MEDS: ONDANSETRON 4 MG ODT TAB PO ONE (08:46)
[2022-01-29 08:47] LABS: Basophils % (Auto) 0.4 % (0.0-1.8); Eosinophils % (Auto) 0.8 % (0.0-4.3); Hematocrit 37.3 % (30.3-42.9); Hemoglobin 12.2 gm/dl (10.1-14.3); Lymphocytes # (Auto) 2.1 K/mm3 (1.2-5.4); Mean Corpuscular HGB Conc 33 % (30-34); Mean Corpuscular Volume 95 fl (79-97); Monocytes # (Auto) 0.4 K/mm3 (0.0-0.8); Monocytes % (Auto) 7.8 % (0.0-7.3); Platelet Count 129 K/mm3 (140-440); Red Blood Count 3.91 M/mm3 (3.65-5.03); Red Cell Distribution Width 12.5 % (13.2-15.2)
[2022-01-29 08:50] LABS: Alanine Aminotransferase 16 units/L (7-56); Albumin 4.2 g/dL (3.9-5); Blood Urea Nitrogen 9 mg/dL (7-17); Calcium 9.3 mg/dL (8.4-10.2); Hemolysis Index 6
[2022-01-29 08:56] LABS: BUN/Creatinine Ratio 13
[2022-01-29 10:18] VITALS: BP 135/65
--- NOTE | 2022-02-01 19:44 | Electrocardiograph Report ---
[facility] Test Date: 2022-01-29 Test Time: 07:29:02 Pat Name: DEION LUNDY Department: Room: Gender: F [employer] Coordinator: JANESSA : 1975 Requested By: YING ALONSO Order Number: [id number] Reading MD: Anne Mello Measurements Intervals Adel Rate: 64 P: 70 WY: 159 QRS: 72 QRSD: 77 T: 58 QT: 419 QTc: 433 Interpretive Statements Sinus rhythm No previous ECG available for comparison Electronically Signed On 02-01-2022 19:44:18 EDT by Anne Mello
== END 2022-01-29 10:17 | disposition home or self-care (01) ==
LOC: ED 05:07
DX: E03.9 Hypothyroidism, unspecified (principal); R53.1 Weakness; J45.909 Unspecified asthma, uncomplicated; F17.200 Nicotine dependence, unspecified, uncomplicated; Z98.51 Tubal ligation status; Z90.710 Acquired absence of both cervix and uterus; Z88.2 Allergy status to sulfonamides; Z88.8 Allergy status to other drugs, medicaments and biological substances; Z79.899 Other long term (current) drug therapy
CPT/HCPCS: 36415; 71046; 80053; 81001; 81025; 84443; 84484; 85025; 93005; 99284; J3490; Q0162